=== PATIENT | female | born 1940 | race Caucasian/White ===

== ENCOUNTER 2018-10-14 13:35 | Inpatient (IN) | payer MEDICARE, BC ==
--- NOTE | 2018-10-14 14:22 | ED Physician Chart ---
ED Chief Complaint/HPI - Patient Information Date Seen:: 10/14/18 Time Seen:: 14:10 Chief Complaint:: cough History of Present Illness:: Patient's had cough intermittently for last 6 months. Patient was hospitalized 3 months ago for COPD/pneumonia. Patient's sputum is off-white in color and her cough is less than it was 3 months ago. No chills or fever. Patient has been on Levaquin for the last 1 week. Patient was transferred here from [facility] where she was admitted 2 weeks ago for having overdosed on 4 OxyContin and a handful of high blood pressure pills the name of which she is unaware. Allergies:: Allergies Allergy/AdvReac Type Severity Reaction Status Date / Time codeine Allergy Verified 10/14/18 14:08 morphine Allergy Verified 10/14/18 14:09 Penicillins [PCN] Allergy Verified 10/14/18 14:08 Historian:: Patient Review:: Transfer documents Reviewed ED Review of Systems - Review of Systems General/Constitutional: No fever, No chills Skin: No skin lesions Head: No headache Eyes: No loss of vision ENT: No earache Neck: No neck pain Cardio Vascular: No chest pain, No palpitations Pulmonary: Cough, Sputum GI: No nausea, No vomiting, No diarrhea Musculoskeletal: No bone or joint pain Endocrine: No polyuria, No polydipsia Psychiatric: Prior psych history Hematopoietic: No bruising Allergic/Immuno: No urticaria Neurological: No syncope ED Past Medical History - Past Medical History Past Medical History: HTN, Asthma/COPD, Dyslipidemia, PUD/GERD, Other ( borderline diabetes) Family History: Heart disease Social History: Other (quit smoking 20 years ago; he consumes alcohol) Surgical History: other (2 back surgeries at [facility]) Psychiatricy History: Depression Medication: Reviewed ED Physical Exam - Physical Examination General/Constitutional: Awake, Well-developed, well-nourished, Alert, No distress, GCS 15, Non-toxic appearing, Ambulatory Head: Atraumatic Eyes: Lids, conjuctiva normal, PERRL, EOMI Skin: Nl inspection, No rash, No skin lesions, No ecchymosis, Well hydrated, No lymphadenopathy ENMT: External ears, nose nl, Nasal exam nl Other ENMT comments:: full upper and lower dentures Neck: Nontender, Full ROM w/o pain, No JVD, No nuchal rigidity, No bruit, No mass, No stridor Respiratory: Nl effort/Exclusion, No Wheeze/Rhonchi/Rales Other Respiratory comments:: 3/4 left basilar rales; otherwise chest is clear Cardio Vascular: RRR, No murmur, gallop, rubs, NL S1 S2 GI: No tenderness/rebounding/guarding, No organomegaly, No hernia, Normal BS's, Nondistended, No mass/bruits, No McBurney tenderness : No CVA tenderness Extremities: No tenderness or effusion, Full ROM, normal strength in all extremities, No edema, Normal digits & nails Neuro/Psych: Alert/oriented, DTR's symmetric, Normal sensory exam, Normal motor strength, Judgement/insight normal, Mood normal, Normal gait, No focal deficits Misc: Normal back, No paraspinal tenderness ED Labs/Radiology/EKG Results - Lab Results Results: Laboratory Results WBC 12.3 Th/cmm (4.8-10.8) H 10/14/18 14:36 RBC 4.37 Mil/cmm (3.80-5.20) 10/14/18 14:36 Hgb 11.6 gm/dL (12-16) L 10/14/18 14:36 Hct 35.6 % (41.0-60) L 10/14/18 14:36 MCV 81.3 fl (81-100) 10/14/18 14:36 MCH 26.6 pg (27.0-31.0) L 10/14/18 14:36 MCHC Differential 32.7 pg (28.0-36.0) 10/14/18 14:36 RDW 15.5 % (11.5-20.0) 10/14/18 14:36 Plt Count 304 Th/cmm (150-400) 10/14/18 14:36 MPV 7.3 fl 10/14/18 14:36 Neutrophils % 85.3 % (40.0-80.0) H 10/14/18 14:36 Lymphocytes % 12.2 % (20.0-50.0) L 10/14/18 14:36 Monocytes % 2.0 % (2.0-10.0) 10/14/18 14:36 Eosinophils % 0.5 % (0.0-5.0) 10/14/18 14:36 Basophils % 0.0 % (0.0-2.0) 10/14/18 14:36 Sodium 141 mEq/L (136-145) 10/14/18 14:36 Potassium 4.1 mEq/L (3.5-5.1) 10/14/18 14:36 Chloride 99 mEq/L (98-107) 10/14/18 14:36 Carbon Dioxide 32.5 mEq/L (21.0-31.0) H 10/14/18 14:36 Anion Gap 13.6 (7.0-16.0) 10/14/18 14:36 BUN 29 mg/dL (7-25) H 10/14/18 14:36 Creatinine 1.6 mg/dL (0.6-1.2) H 10/14/18 14:36 Est GFR ( Amer) TNP 10/14/18 14:36 Est GFR (Non-Af Amer) TNP 10/14/18 14:36 BUN/Creatinine Ratio 18.1 10/14/18 14:36 Glucose 178 mg/dL (70-105) H 10/14/18 14:36 Calcium 9.7 mg/dL (8.6-10.3) 10/14/18 14:36 - Radiology Results Results: Chest x-ray showed calcification of the aortic arch; no infiltrate ED Septic Shock - . Is Septic Shock (SBP<90, OR Lactate>4 mmol\L) present?: No ED Reassessment (Disposition) - Reassessment Reassessment Condition:: Unchanged - Diagnosis Diagnosis:: exacerbation COPD; hyperglycemia; leukocytosis; history of depression and intentional medication overdose - Patient Disposition Admitted to:: Med/Surg Spoke to:: Graham Vasquez Admitting Medical Physician:: Graham Vasquez Condition at Disposition:: Stable, Unchanged
--- NOTE | 2018-10-14 14:33 | Diagnostic Imaging Report ---
CHEST X-RAY: AP view INDICATION: Cough COMPARISON: None FINDINGS: Chronic changes are seen with no focal consolidation. There is a 5 mm nodular density projecting along the right midlung. Heart size is normal. Atherosclerosis is noted. Degenerative changes of the spine are noted. IMPRESSION: No focal consolidation identified. 5 mm nodular density projecting along the right mid lung. Findings may represent a granuloma. Correlation with old exams would be helpful for comparison. If no prior exams are available, a follow-up CT of the chest is, however, recommended for further assessment of this finding to rule out other pulmonary nodules. Atherosclerotic vascular disease.
[2018-10-14 14:42] LABS: % EOSINOPHILS 0.5 % (0.0-5.0); % LYMPHOCYTES 12.2 % (20.0-50.0); % NEUTROPHILS 85.3 % (40.0-80.0); EOSINOPHILE ABSOLUTE 0.1 Th/cmm (0.1-0.4); HEMATOCRIT 35.6 % (41.0-60); HEMOGLOBIN 11.6 gm/dL (12-16); LYMPHOCYTE ABSOLUTE 1.5 Th/cmm (1.5-3.0); MEAN CELL VOLUME 81.3 fl (81-100); MEAN CORPUSCULAR HEMOGLOBIN 26.6 pg (27.0-31.0); MEAN CORPUSCULAR HGB CONC 32.7 pg (28.0-36.0); MEAN PLATELET VOLUME 7.3 fl; MONOCYTE ABSOLUTE 0.2 Th/cmm (0.3-1.0); NEUTROPHILE ABSOLUTE 10.5 Th/cmm (1.8-8.0); PLATELET COUNT 304 Th/cmm (150-400); RED BLOOD COUNT 4.37 Mil/cmm (3.80-5.20); RED CELL DISTRIBUTION WIDTH 15.5 % (11.5-20.0); WHITE BLOOD COUNT 12.3 Th/cmm (4.8-10.8)
[2018-10-14 14:57] LABS: ANION GAP 13.6 (7.0-16.0); BUN - UREA NITROGEN 29 mg/dL (7-25); CALCIUM SERUM 9.7 mg/dL (8.6-10.3); CARBON DIOXIDE 32.5 mEq/L (21.0-31.0); CHLORIDE 99 mEq/L (98-107); CREATININE - SERUM 1.6 mg/dL (0.6-1.2); GLUCOSE 178 mg/dL (70-105); POTASSIUM SERUM 4.1 mEq/L (3.5-5.1); SODIUM SERUM 141 mEq/L (136-145)
[2018-10-14] MEDS ORDERED: Magnesium Hydroxide (MOM) 30 mL UDC PO PRN (17:11)
[2018-10-14] MEDS ORDERED: guaiFENesin 200 MG/10 ML UDC PO PRN (17:13)
[2018-10-14] MEDS ORDERED: D5-0.45NS 1,000 ML IV SCH (17:15)
[2018-10-14] MEDS ORDERED: GLUCAGON HCl 1 MG KIT IM PRN (17:22)
[2018-10-14] MEDS ORDERED: Dextrose 50% 50 mL Abboject IVP PRN (17:22)
[2018-10-14 17:49] VITALS: BP 107/89
--- NOTE | 2018-10-14 18:27 | History & Physical ---
ADMIT DATE: 10/14/2018 CHIEF COMPLAINT: Congestion, shortness of breath and coughing. HISTORY OF PRESENT ILLNESS: This is a 78-year-old female with a history of asthma, COPD, high blood pressure, high cholesterol, borderline diabetes, GERD, admitted from ____ secondary to worsening shortness of breath. The patient was on Levaquin as well as steroids, but her condition has not been improving. The patient denies chest pain. PAST MEDICAL HISTORY: As mentioned in history of present illness. PAST SURGICAL HISTORY: 2 back sx, left knee sx in the past. ALLERGIES: CODEINE, MORPHINE, PENICILLIN. MEDICATIONS: Albuterol, Atrovent, Lexapro, Colace, Plavix, gabapentin, Neurontin, Mucinex, Ativan, ____ Levaquin as well as prednisone. FAMILY HISTORY: Noncontributory. SOCIAL HISTORY: The patient is an avid smoker, quit 20 yrs ago,drinks occasionally. No intravenous drug use.worked as [employer]. REVIEW OF SYSTEMS: GENERAL: Complains not feeling well. HEENT: Blurred vision. LUNGS: The patient with chronic obstructive pulmonary disease and asthma. Chronic smoker. HEART: The patient with hypertension. The patient with history of coronary artery disease. ABDOMEN: No nausea, vomiting, or pain, history of reflux. NEUROLOGIC: No headache, seizure or syncope. PSYCHIATRIC: As stated above. PHYSICAL EXAMINATION: VITAL SIGNS: Blood pressure 151/64, respirations 20, pulse 62, temperature 97.0. Elderly female, appears her stated age. NECK: Supple. No mass. LUNGS: Equal breath sounds, few rhonchi. HEART: Regular rate and rhythm. No systolic ejection murmur. ABDOMEN: Soft, globular. EXTREMITIES: Positive excoriations. NEUROLOGIC: Limited. LABORATORY DATA: WBC 12, hemoglobin 11, platelets 304. Sodium 141, potassium 4.1, BUN 29, creatinine 1.6, blood sugar 128. ASSESSMENT: 1. Possible pneumonia. 2. Chronic obstructive pulmonary disease exacerbation. 3. Hypertension. 4. Possible coronary artery disease. 5. Hypercholesterolemia. 6. Hyperglycemia, possible diabetes. 7. Gastroesophageal disorder. 8. Psych disorder. PLAN: We will continue the patient on oxygen, bronchodilator treatment. Continue on IV hydration, hold off diuretics. We will start the patient on vancomycin as well as ____. Continue IV steroids. We will refer the patient to Pulmonary and we will monitor the patient closely. JOB# [id number] CASSIE
[2018-10-14] MEDS ORDERED: Albuterol Nebulizer 2.5mg/3mL HHN SCH (19:00)
[2018-10-14] MEDS ORDERED: Ipratropium Neb 0.5 mg/2.5 mL UD IH SCH (19:00)
[2018-10-14] MEDS ORDERED: Levofloxacin 500mg/100mL 500 MG/100 ML BAG IV ONE (20:00)
[2018-10-14] MEDS: Sodium Chloride 0.45% 1,000 ML IV SCH (20:08)
[2018-10-14] MEDS: INSULIN LISPRO SLIDING SCALE 100 UNITS/ML UNIT SUBQ SCH (20:43)
[2018-10-14] MEDS ORDERED: Albuterol/Ipratropium Neb 3 ML AERS HHN SCH (21:00)
[2018-10-15] MEDS: INSULIN LISPRO SLIDING SCALE 100 UNITS/ML UNIT SUBQ SCH ×4 (06:41→21:19)
[2018-10-15] MEDS: Albuterol/Ipratropium Neb 3 ML AERS HHN SCH ×3 (07:49→22:32)
[2018-10-15] MEDS: Atorvastatin Calcium 10 MG TAB PO SCH (08:56)
[2018-10-15] MEDS ORDERED: Non-Formulary Item 1 EA (L.Acidoph,Paracasei, B.Lactis [Probiotic] 1 EACH) PO SCH (09:00)
[2018-10-15] MEDS ORDERED: Non-Formulary Item 1 EA (Metoprolol Tartrate [Metoprolol Tartrate] 100 MG) PO SCH (09:00)
[2018-10-15] MEDS ORDERED: LOSARTAN POTASSIUM 100 MG PO SCH (09:00)
[2018-10-15 09:08] LABS: ANION GAP 13.9 (7.0-16.0); BUN - UREA NITROGEN 27 mg/dL (7-25); CALCIUM SERUM 9.1 mg/dL (8.6-10.3); CHLORIDE 97 mEq/L (98-107); CREATININE - SERUM 1.4 mg/dL (0.6-1.2); GLUCOSE 202 mg/dL (70-105); POTASSIUM SERUM 3.9 mEq/L (3.5-5.1); SODIUM SERUM 138 mEq/L (136-145)
[2018-10-15] MEDS: Sodium Chloride 0.45% 1,000 ML IV SCH (11:51)
--- NOTE | 2018-10-15 12:23 | Internal Medicine Prog Note ---
Internal Medicine Subjective - Subjective Patient seen and examined:: with staff, chart reviewed Patient is:: awake, verbal, interactive, in bed Patient Complaints of:: congestion, unable to sleep Per staff patient has:: no adverse event, no episodes of fall, poor appetite Internal Medicine Objective - Results Result Diagrams: 10/14/18 14:36 10/15/18 08:45 Recent Labs: Laboratory Last Values WBC 12.3 Th/cmm (4.8-10.8) H 10/14/18 14:36 RBC 4.37 Mil/cmm (3.80-5.20) 10/14/18 14:36 Hgb 11.6 gm/dL (12-16) L 10/14/18 14:36 Hct 35.6 % (41.0-60) L 10/14/18 14:36 MCV 81.3 fl (81-100) 10/14/18 14:36 MCH 26.6 pg (27.0-31.0) L 10/14/18 14:36 MCHC Differential 32.7 pg (28.0-36.0) 10/14/18 14:36 RDW 15.5 % (11.5-20.0) 10/14/18 14:36 Plt Count 304 Th/cmm (150-400) 10/14/18 14:36 MPV 7.3 fl 10/14/18 14:36 Neutrophils % 85.3 % (40.0-80.0) H 10/14/18 14:36 Lymphocytes % 12.2 % (20.0-50.0) L 10/14/18 14:36 Monocytes % 2.0 % (2.0-10.0) 10/14/18 14:36 Eosinophils % 0.5 % (0.0-5.0) 10/14/18 14:36 Basophils % 0.0 % (0.0-2.0) 10/14/18 14:36 Sodium 138 mEq/L (136-145) 10/15/18 08:45 Potassium 3.9 mEq/L (3.5-5.1) 10/15/18 08:45 Chloride 97 mEq/L (98-107) L 10/15/18 08:45 Carbon Dioxide 31.0 mEq/L (21.0-31.0) 10/15/18 08:45 Anion Gap 13.9 (7.0-16.0) 10/15/18 08:45 BUN 27 mg/dL (7-25) H 10/15/18 08:45 Creatinine 1.4 mg/dL (0.6-1.2) H 10/15/18 08:45 Est GFR ( Amer) TNP 10/15/18 08:45 Est GFR (Non-Af Amer) TNP 10/15/18 08:45 BUN/Creatinine Ratio 19.3 10/15/18 08:45 Glucose 202 mg/dL (70-105) H 10/15/18 08:45 POC Glucose 200 MG/DL (70 - 105) H 10/15/18 11:50 Calcium 9.1 mg/dL (8.6-10.3) 10/15/18 08:45 - Physical Exam Vitals and I&O: Vital Signs Temp 96.8 F 10/15/18 08:00 Pulse 63 10/15/18 08:56 Resp 18 10/15/18 08:00 BP 153/61 10/15/18 08:56 Pulse Ox 99 10/15/18 08:00 Intake & Output 10/14/18 10/15/18 10/15/18 18:59 06:59 18:59 Intake Total 588 211 7001 Balance 037 247 9990 Weight (lbs) 97.522 kg 97.522 kg Intake: Intake, IV Amount 1000 Sodium Chloride 0.45% 1, 1000 000 ml @ 80 mls/hr IV . [id number] [facility] Rx#:[id number] Oral 200 250 Other: # Voids 5 # Bowel Movements 0 Weight Source Bedscale Bedscale Active Medications: Current Medications Acetaminophen (Tylenol) 650 mg PO Q4HR PRN PRN Reason: Pain (Moderate) Stop: 12/13/18 17:10 Last Admin: 10/14/18 20:24 Dose: 650 mg Albuterol/Ipratropium (Duoneb Neb) 3 ml HHN TIDRT [facility] Stop: 12/14/18 02:29 Last Admin: 10/15/18 07:49 Dose: 3 ml Atorvastatin Calcium (Lipitor) 20 mg PO DAILY [facility] Stop: 12/14/18 08:59 Last Admin: 10/15/18 08:56 Dose: 20 mg Clopidogrel Bisulfate (Plavix) 75 mg PO DAILY [facility] Stop: 12/14/18 08:59 Last Admin: 10/15/18 08:57 Dose: 75 mg Dextrose (D50w) 50 ml IVP PRN PRN PRN Reason: Blood Glucose less than 70 Stop: 12/13/18 17:21 Dextrose (Glutose 40%) 18.75 gm PO PRN PRN PRN Reason: Blood Glucose less than 70 Stop: 12/13/18 17:21 Docusate Sodium (Colace) 100 mg PO DAILY [facility] Stop: 12/14/18 08:59 Last Admin: 10/15/18 09:01 Dose: Not Given Escitalopram Oxalate (Lexapro) 10 mg PO DAILY [facility]; Protocol Stop: 12/14/18 08:59 Last Admin: 10/15/18 08:57 Dose: 10 mg Famotidine (Pepcid) 20 mg PO DAILY [facility] Stop: 12/14/18 08:59 Last Admin: 10/15/18 08:56 Dose: 20 mg Gabapentin (Neurontin) 400 mg PO DAILY [facility] Stop: 12/14/18 08:59 Last Admin: 10/15/18 08:56 Dose: 400 mg Glucagon (Glucagen) 1 mg IM PRN PRN PRN Reason: Blood Glucose less than 70 Stop: 12/13/18 17:21 Guaifenesin (Mucinex) 600 mg PO BID [facility] Stop: 12/14/18 08:59 Last Admin: 10/15/18 08:56 Dose: 600 mg Guaifenesin (Robitussin) 200 mg PO Q4HR PRN PRN Reason: Cough or Congestion Stop: 12/13/18 17:12 Sodium Chloride (Nacl 0.45%) 1,000 mls @ 80 mls/hr IV .[id number] [facility] Stop: 12/13/18 17:29 Last Admin: 10/15/18 11:51 Dose: 80 mls/hr Levofloxacin (Levaquin Pb) 250 mg in 50 mls @ 50 mls/hr IV Q24HR [facility] Stop: 12/14/18 20:59 Vancomycin HCl 1.5 gm/ Sodium (Chloride) 500 mls @ 250 mls/hr IV Q24H [facility] Stop: 12/14/18 13:59 Insulin Human Lispro (Humalog Insulin Sliding Scale) 0 units SUBQ ACHS [facility]; Protocol Stop: 12/13/18 20:59 Last Admin: 10/15/18 06:41 Dose: Not Given Loratadine (Claritin) 10 mg PO DAILY [facility] Stop: 12/14/18 08:59 Last Admin: 10/15/18 08:56 Dose: 10 mg Lorazepam (Ativan) 0.5 mg PO Q6HR PRN; Protocol PRN Reason: Anxiety Stop: 12/13/18 17:10 Losartan Potassium (Cozaar) 100 mg PO DAILY [facility] Stop: 12/14/18 08:59 Last Admin: 10/15/18 08:55 Dose: 100 mg Magnesium Hydroxide (Milk Of Magnesia) 30 ml PO Q4HR PRN PRN Reason: GI DISTRESS Stop: 12/13/18 17:10 Methylprednisolone Sodium Succinate (Solu-Medrol) 80 mg IVP Q8HR [facility] Stop: 12/13/18 20:59 Last Admin: 10/15/18 05:06 Dose: 80 mg Metoprolol Tartrate (Lopressor) 100 mg PO DAILY [facility] Stop: 12/14/18 08:59 Last Admin: 10/15/18 08:56 Dose: 100 mg Miscellaneous (Pharmacy To Dose) 1 ea [facility] PRN PRN PRN Reason: VANCOMYCIN IV PER RX Stop: 12/14/18 08:07 Montelukast Sodium (Singulair) 10 mg PO HS [facility] Stop: 12/14/18 20:59 Ondansetron HCl (Zofran) 4 mg IV Q8H PRN PRN Reason: Nausea / Vomiting Stop: 12/13/18 17:12 Oxybutynin Chloride (Ditropan) 5 mg PO TID PRN PRN Reason: Urinary Incontinence Stop: 12/13/18 17:10 Zolpidem Tartrate (Ambien) 5 mg PO HS PRN PRN Reason: Sleeplessness Stop: 12/13/18 17:10 Last Admin: 10/15/18 00:52 Dose: 5 mg General: alert, obese HEENT: NC/AT, PERRLA Neck: Supple, No JVD Lungs: wheezing, rales, ronchi Cardiovascular: RRR, Normal S1, Normal S2, with murmur Abdomen: soft, globular, positive bowel sound Extremities: excoriation Internal Medicine Assmt/Plan - Assessment Assessment: ASSESSMENT: 1. Possible pneumonia. 2. Chronic obstructive pulmonary disease exacerbation. 3. Hypertension. 4. Possible coronary artery disease. 5. Hypercholesterolemia. 6. Hyperglycemia, possible diabetes. 7. Gastroesophageal disorder. 8. Psych disorder. - Plan Plan: PLAN: We will continue the patient on oxygen, bronchodilator treatment. Continue on IV hydration, hold off diuretics. We will start the patient on vancomycin as well as ___levaquin_. Continue IV steroids. We will refer the patient to Pulmonary and we will monitor the patient closely.
[2018-10-15] MEDS ORDERED: VTE Chemical Prophylaxis Screen/Admission MC PRN (13:38)
[2018-10-15] MEDS ORDERED: Vancomycin HCl 1.5 GM in Sodium Chloride 0.9% 500 ML IV SCH (14:00)
[2018-10-15] MEDS ORDERED: Probiotic Screen MC PRN (16:35)
[2018-10-15] MEDS: Heparin Sod 5,000Units/ML 5,000 UNITS/ML VIAL SUBQ SCH (21:19)
[2018-10-15] MEDS: Levofloxacin 250 mg/50 mL Premix Bag IV SCH (21:57)
[2018-10-16 06:24] LABS: % BASOPHILS 0.6 % (0.0-2.0); % EOSINOPHILS 0.2 % (0.0-5.0); % LYMPHOCYTES 14.1 % (20.0-50.0); % MONOCYTES 2.6 % (2.0-10.0); % NEUTROPHILS 82.5 % (40.0-80.0); BASOPHILE ABSOLUTE 0.1 Th/cumm (0-0.2); HEMATOCRIT 33.5 % (41.0-60); HEMOGLOBIN 10.8 gm/dL (12-16); LYMPHOCYTE ABSOLUTE 1.3 Th/cmm (1.5-3.0); MEAN CELL VOLUME 81.4 fl (81-100); MEAN CORPUSCULAR HEMOGLOBIN 26.2 pg (27.0-31.0); MEAN CORPUSCULAR HGB CONC 32.2 pg (28.0-36.0); MEAN PLATELET VOLUME 7.7 fl; MONOCYTE ABSOLUTE 0.2 Th/cmm (0.3-1.0); NEUTROPHILE ABSOLUTE 7.6 Th/cmm (1.8-8.0); PLATELET COUNT 236 Th/cmm (150-400); RED BLOOD COUNT 4.11 Mil/cmm (3.80-5.20); WHITE BLOOD COUNT 9.2 Th/cmm (4.8-10.8)
[2018-10-16 06:30] LABS: ALB/GLOB RATIO 1.5 (1.0-1.8); ALBUMIN 3.3 gm/dL (3.7-5.3); ALKALINE PHOSPHATASE 55 U/L (34-104); ANION GAP 9.9 (7.0-16.0); BILIRUBIN,TOTAL 0.4 mg/dL (0.3-1.0); BUN - UREA NITROGEN 29 mg/dL (7-25); CALCIUM SERUM 8.9 mg/dL (8.6-10.3); CARBON DIOXIDE 30.7 mEq/L (21.0-31.0); CHLORIDE 100 mEq/L (98-107); CHOLESTEROL 160 mg/dL (<200); CREATININE - SERUM 1.3 mg/dL (0.6-1.2); GLUCOSE 192 mg/dL (70-105); HDL -HIGH DENSITY LIPOPROTEIN 51 mg/dL (23-92); POTASSIUM SERUM 3.6 mEq/L (3.5-5.1); SGOT 7 U/L (13-39); SGPT/ALT 10 U/L (7-52); SODIUM SERUM 137 mEq/L (136-145); TOTAL PROTEIN,SERUM 5.5 gm/dL (6.0-8.3); TRIGLYCERIDES 133 mg/dL (<150)
[2018-10-16] MEDS: Albuterol/Ipratropium Neb 3 ML AERS HHN SCH ×3 (06:34→23:00)
[2018-10-16] MEDS: INSULIN LISPRO SLIDING SCALE 100 UNITS/ML UNIT SUBQ SCH ×4 (06:37→20:29)
[2018-10-16] MEDS: Heparin Sod 5,000Units/ML 5,000 UNITS/ML VIAL SUBQ SCH ×2 (09:48→20:14)
[2018-10-16] MEDS: Atorvastatin Calcium 10 MG TAB PO SCH (09:49)
--- NOTE | 2018-10-16 10:46 | Diagnostic Imaging Report ---
Time: CT examination of chest. HISTORY: Lung nodule. COMPARISON: None Total DLP equals 339 CTDI equals 8.8 Findings: Multiple contiguous thin section of the chest were obtained from thoracic outlet to the upper abdomen without administration of contrast material. The study demonstrates normal appearance of the right vessels of the neck. Adenopathy cannot be excluded due to lack of contrast material. Distal structures midline no abnormal adenopathy is noted. There is evidence of pleural thickening in the right lower chest posteriorly. There is evidence for a small 8 mm granuloma in the right midlung. There is no active pulmonic infiltrates or effusions. Mediastinal adenopathy is difficult to appreciated just lateral of contrast material. There is evidence for pleural thickening in the right base posteriorly with atelectatic changes. The aorta is calcified. IMPRESSION: Small granuloma in the right midlung peripherally. Pleural thickening in the right mid lung laterally as well as a pleural thickening right base with atelectasis.
[2018-10-16] MEDS: Sodium Chloride 0.45% 1,000 ML IV SCH (10:56)
--- NOTE | 2018-10-16 14:30 | Internal Medicine Prog Note ---
Internal Medicine Subjective - Subjective Service Date: 10/16/18 (c/o unable to spit out her phlegm) Patient is:: awake, verbal, interactive, in bed Patient Complaints of:: congestion, unable to sleep Per staff patient has:: no adverse event, no episodes of fall, poor appetite Internal Medicine Objective - Results Result Diagrams: 10/16/18 06:00 10/16/18 06:00 Recent Labs: Laboratory Last Values WBC 9.2 Th/cmm (4.8-10.8) 10/16/18 06:00 RBC 4.11 Mil/cmm (3.80-5.20) 10/16/18 06:00 Hgb 10.8 gm/dL (12-16) L 10/16/18 06:00 Hct 33.5 % (41.0-60) L 10/16/18 06:00 MCV 81.4 fl (81-100) 10/16/18 06:00 MCH 26.2 pg (27.0-31.0) L 10/16/18 06:00 MCHC Differential 32.2 pg (28.0-36.0) 10/16/18 06:00 RDW 15.0 % (11.5-20.0) 10/16/18 06:00 Plt Count 236 Th/cmm (150-400) 10/16/18 06:00 MPV 7.7 fl 10/16/18 06:00 Neutrophils % 82.5 % (40.0-80.0) H 10/16/18 06:00 Lymphocytes % 14.1 % (20.0-50.0) L 10/16/18 06:00 Monocytes % 2.6 % (2.0-10.0) 10/16/18 06:00 Eosinophils % 0.2 % (0.0-5.0) 10/16/18 06:00 Basophils % 0.6 % (0.0-2.0) 10/16/18 06:00 Sodium 137 mEq/L (136-145) 10/16/18 06:00 Potassium 3.6 mEq/L (3.5-5.1) 10/16/18 06:00 Chloride 100 mEq/L (98-107) 10/16/18 06:00 Carbon Dioxide 30.7 mEq/L (21.0-31.0) 10/16/18 06:00 Anion Gap 9.9 (7.0-16.0) 10/16/18 06:00 BUN 29 mg/dL (7-25) H 10/16/18 06:00 Creatinine 1.3 mg/dL (0.6-1.2) H 10/16/18 06:00 Est GFR ( Amer) TNP 10/16/18 06:00 Est GFR (Non-Af Amer) TNP 10/16/18 06:00 BUN/Creatinine Ratio 22.3 10/16/18 06:00 Glucose 192 mg/dL (70-105) H 10/16/18 06:00 POC Glucose 208 MG/DL (70 - 105) H 10/16/18 11:17 Calcium 8.9 mg/dL (8.6-10.3) 10/16/18 06:00 Total Bilirubin 0.4 mg/dL (0.3-1.0) 10/16/18 06:00 AST 7 U/L (13-39) L 10/16/18 06:00 ALT 10 U/L (7-52) 10/16/18 06:00 Alkaline Phosphatase 55 U/L (34-104) 10/16/18 06:00 Total Protein 5.5 gm/dL (6.0-8.3) L 10/16/18 06:00 Albumin 3.3 gm/dL (3.7-5.3) L 10/16/18 06:00 Globulin 2.2 gm/dL 10/16/18 06:00 Albumin/Globulin Ratio 1.5 (1.0-1.8) 10/16/18 06:00 Triglycerides 133 mg/dL (<150) 10/16/18 06:00 Cholesterol 160 mg/dL (<200) 10/16/18 06:00 LDL Cholesterol Direct 94 mg/dL (75-193) 10/16/18 06:00 HDL Cholesterol 51 mg/dL (23-92) 10/16/18 06:00 TSH 0.65 uIU/ml (0.34-5.60) 10/16/18 06:00 - Physical Exam Vitals and I&O: Vital Signs Temp 96.8 F 10/16/18 12:00 Pulse 76 10/16/18 12:09 Resp 20 10/16/18 12:09 BP 152/62 10/16/18 12:00 Pulse Ox 99 10/16/18 12:09 Intake & Output 10/15/18 10/16/18 10/16/18 18:59 06:59 18:59 Intake Total 1375 200 Balance 1375 200 Weight (lbs) 215 lb 215 lb Intake: Intake, IV Amount 1000 Sodium Chloride 0.45% 1, 1000 000 ml @ 80 mls/hr IV . [id number] [facility] Rx#:[id number] Oral 375 200 Other: # Voids 6 2 Weight Source Bedscale Bedscale Active Medications: Current Medications Acetaminophen (Tylenol) 650 mg PO Q4HR PRN PRN Reason: Pain (Moderate) Stop: 12/13/18 17:10 Last Admin: 10/14/18 20:24 Dose: 650 mg Albuterol/Ipratropium (Duoneb Neb) 3 ml HHN TIDRT [facility] Stop: 12/14/18 02:29 Last Admin: 10/16/18 12:05 Dose: 3 ml Atorvastatin Calcium (Lipitor) 20 mg PO DAILY [facility] Stop: 12/14/18 08:59 Last Admin: 10/16/18 09:49 Dose: 20 mg Clopidogrel Bisulfate (Plavix) 75 mg PO DAILY [facility] Stop: 12/14/18 08:59 Last Admin: 10/16/18 09:48 Dose: 75 mg Dextrose (D50w) 50 ml IVP PRN PRN PRN Reason: Blood Glucose less than 70 Stop: 12/13/18 17:21 Dextrose (Glutose 40%) 18.75 gm PO PRN PRN PRN Reason: Blood Glucose less than 70 Stop: 12/13/18 17:21 Docusate Sodium (Colace) 100 mg PO DAILY [facility] Stop: 12/14/18 08:59 Last Admin: 10/16/18 09:48 Dose: 100 mg Escitalopram Oxalate (Lexapro) 10 mg PO DAILY [facility]; Protocol Stop: 12/14/18 08:59 Last Admin: 10/16/18 09:48 Dose: 10 mg Famotidine (Pepcid) 20 mg PO DAILY [facility] Stop: 12/14/18 08:59 Last Admin: 10/16/18 09:48 Dose: 20 mg Gabapentin (Neurontin) 400 mg PO DAILY [facility] Stop: 12/14/18 08:59 Last Admin: 10/16/18 09:49 Dose: 400 mg Glucagon (Glucagen) 1 mg IM PRN PRN PRN Reason: Blood Glucose less than 70 Stop: 12/13/18 17:21 Guaifenesin (Mucinex) 600 mg PO BID [facility] Stop: 12/14/18 08:59 Last Admin: 10/16/18 09:47 Dose: 600 mg Guaifenesin (Robitussin) 200 mg PO Q4HR PRN PRN Reason: Cough or Congestion Stop: 12/13/18 17:12 Heparin Sodium (Porcine) (Heparin) 5,000 units SUBQ Q12H [facility] Stop: 12/14/18 20:59 Last Admin: 10/16/18 09:48 Dose: 5,000 units Levofloxacin (Levaquin Pb) 250 mg in 50 mls @ 50 mls/hr IV Q24HR [facility] Stop: 12/14/18 20:59 Last Admin: 10/15/18 21:57 Dose: 50 mls/hr Sodium Chloride (Nacl 0.45%) 1,000 mls @ 60 mls/hr IV .[id number] [facility] Stop: 12/14/18 12:29 Last Admin: 10/16/18 10:56 Dose: 60 mls/hr Vancomycin HCl 1 gm/ Sodium (Chloride) 250 mls @ 165 mls/hr IV Q24H [facility] Stop: 12/15/18 13:59 Last Admin: 10/16/18 13:11 Dose: 165 mls/hr Insulin Human Lispro (Humalog Insulin Sliding Scale) 0 units SUBQ ACHS [facility]; Protocol Stop: 12/13/18 20:59 Last Admin: 10/16/18 11:45 Dose: 2 units Loratadine (Claritin) 10 mg PO DAILY [facility] Stop: 12/14/18 08:59 Last Admin: 10/16/18 09:48 Dose: 10 mg Lorazepam (Ativan) 0.5 mg PO Q6HR PRN; Protocol PRN Reason: Anxiety Stop: 12/13/18 17:10 Losartan Potassium (Cozaar) 100 mg PO DAILY [facility] Stop: 12/14/18 08:59 Last Admin: 10/16/18 09:47 Dose: 100 mg Magnesium Hydroxide (Milk Of Magnesia) 30 ml PO Q4HR PRN PRN Reason: GI DISTRESS Stop: 12/13/18 17:10 Methylprednisolone Sodium Succinate (Solu-Medrol) 40 mg IVP Q8HR [facility] Stop: 12/15/18 20:59 Metoprolol Tartrate (Lopressor) 100 mg PO DAILY [facility] Stop: 12/14/18 08:59 Last Admin: 10/16/18 09:48 Dose: 100 mg Miscellaneous (Pharmacy To Dose) 1 ea PRN PRN PRN Reason: VANCOMYCIN IV PER RX Stop: 12/14/18 08:07 Miscellaneous (Vte Chemical Prophylaxis Screen/ Admission) 1 ea PRN PRN PRN Reason: PROTOCOL Stop: 12/14/18 13:37 Miscellaneous (Probiotic Screen) 1 ea PRN PRN PRN Reason: PROTOCOL Stop: 12/14/18 16:34 Montelukast Sodium (Singulair) 10 mg PO HS [facility] Stop: 12/14/18 20:59 Last Admin: 10/15/18 21:19 Dose: 10 mg Ondansetron HCl (Zofran) 4 mg IV Q8H PRN PRN Reason: Nausea / Vomiting Stop: 12/13/18 17:12 Oxybutynin Chloride (Ditropan) 5 mg PO TID PRN PRN Reason: Urinary Incontinence Stop: 12/13/18 17:10 Zolpidem Tartrate (Ambien) 5 mg PO HS PRN PRN Reason: Sleeplessness Stop: 12/13/18 17:10 Last Admin: 10/15/18 23:08 Dose: 5 mg General: alert, obese HEENT: NC/AT, PERRLA Neck: Supple, No JVD Lungs: wheezing, rales, ronchi Cardiovascular: RRR, Normal S1, Normal S2, with murmur Abdomen: soft, globular, positive bowel sound Extremities: excoriation Internal Medicine Assmt/Plan - Assessment Assessment: 1. Possible pneumonia. 2. Chronic obstructive pulmonary disease exacerbation. 3. Hypertension. 4. Possible coronary artery disease. 5. Hypercholesterolemia. 6. Hyperglycemia, possible diabetes. 7. Gastroesophageal disorder. 8. Psych disorder. - Plan Plan: continue ivabx respiratory treatments will add mucomyst am labs midline to be placed as patient is hard stick
--- NOTE | 2018-10-16 17:30 | Consultation ---
DATE OF CONSULTATION: 10/15/2018 PSYCHIATRIC CONSULTATION CHIEF COMPLAINT: "Feeling a little bit better." HISTORY OF PRESENT ILLNESS: The patient is a 78-year-old female with a history of depression, anxiety, status post suicide attempt by overdosing, was on psychiatric floor at [facility], treated for depression. The patient now transferred to medical floor for treatment of infection. The patient says she is feeling better in terms of anxiety and depression, has no suicidal thoughts, talked about stressors, money problems, and health issues. The patient was started on Lexapro and she appears to be improving. PAST PSYCHIATRIC HISTORY: Chronic depression and anxiety. PAST MEDICAL HISTORY: As per H and P. PSYCHOSOCIAL HISTORY: Family is supportive, daughter is involved in treatment. MENTAL STATUS EXAMINATION: Speech fluent, not pressured, made fair eye contact. Affect is slightly anxious and depressed. No other visual hallucinations. No delusional thoughts. No suicidal or homicidal thoughts. ASSESSMENT: Major depressive disorder. PLAN: Continue Lexapro 10 mg p.o. every day and Ativan 0.5 mg p.o. q. 6 hours p.r.n. The patient will need physical rehabilitation after this hospitalization while she was at [facility], she was in the process of being transferred to [facility]. We will follow up on this. Thank you for the consultation. [facility]# [id number]
[2018-10-16] MEDS: methylPREDNISolone SS 40 mg Vial IVP SCH (20:13)
[2018-10-16] MEDS: Levofloxacin 250 mg/50 mL Premix Bag IV SCH (20:14)
--- NOTE | 2018-10-16 21:14 | Consultation ---
DATE OF CONSULTATION: 10/15/[address] Vasquez for this consultation. HISTORY OF PRESENT ILLNESS: This is a 78-year-old female with history of COPD, hypertension, hypercholesterolemia, presented with cough, shortness, congestion, shortness of breath. She has presented to the Emergency Room couple of times in the past 6 months and was admitted for treatment and management, feeling better already. Denies any shortness of breath. She did have some cough. SOCIAL HISTORY: History of smoking 2-1/2 packs a day for over 20 years, quit 27 years ago. REVIEW OF SYSTEMS: GENERAL: Weakness and fatigue. CARDIOVASCULAR: No chest pain. RESPIRATORY: Shortness of breath. No wheezing. GASTROINTESTINAL: No nausea or vomiting. PHYSICAL EXAMINATION: GENERAL: Awake, but not in distress. VITAL SIGNS: Temperature is 96.8, pulse 63, respiration 18, blood pressure 153/61, saturation 99%. HEENT: Atraumatic, normocephalic. Pupils are equal to light and accommodation. Ears, nose, and throat normal. NECK: Supple. No JVD. CHEST: There are scattered wheezing and rhonchi bilaterally. HEART: Regular rate and rhythm. ABDOMEN: Soft. EXTREMITIES: No edema. LABORATORY DATA: Sodium 138, potassium 3.9, BUN 27, creatinine 1.4. WBC is 12.3, hemoglobin 11.6, platelets 304. Chest x-ray showed 5 mm nodule at the lung area. IMPRESSION: 1. Chronic respiratory failure. 2. Chronic obstructive pulmonary disease exacerbation. 3. Lung nodule. PLAN: 1. Continue IV antibiotics. 2. IV Solu-Medrol. 3. Nebulizer treatment. 4. CT of the chest for better evaluation. Thank you very much for this consultation. I will follow the patient with you. JOB# [id number]
--- NOTE | 2018-10-16 23:14 | Progress Notes ---
DATE: 10/16/2018 SUBJECTIVE: The patient appears to be doing okay. Breathing mendez has swollen right arm base from the IV. PHYSICAL EXAMINATION: VITAL SIGNS: Temperature 96.8, pulse 76, respirations 20, blood pressure is 150/62, saturation 99%. CHEST: Good breath sounds. Decreased wheezing or rhonchi. HEART: Regular rate and rhythm. ABDOMEN: Soft. EXTREMITIES: No edema. LABORATORY DATA: WBC is 9.2, hemoglobin 10.8. Sodium is 137, potassium 3.6, BUN is 29, creatinine 1.3. CT of the chest showed small granuloma and pleural thickening. No masses. IMPRESSION: 1. Respiratory failure. 2. Chronic obstructive pulmonary disease exacerbation. 3. Weakness. 4. Right arm swelling secondary to IV. PLAN: Discussed with the nurse staff to discontinue IV, compress to elevate the right arm and continue Solu-Medrol, nebulizer treatment. Decrease steroids. JOB# [id number]
[2018-10-17] MEDS: methylPREDNISolone SS 40 mg Vial IVP SCH ×3 (04:20→20:18)
[2018-10-17 06:34] LABS: % EOSINOPHILS 0.3 % (0.0-5.0); % LYMPHOCYTES 11.8 % (20.0-50.0); % MONOCYTES 3.7 % (2.0-10.0); % NEUTROPHILS 84.2 % (40.0-80.0); HEMATOCRIT 33.4 % (41.0-60); HEMOGLOBIN 10.9 gm/dL (12-16); LYMPHOCYTE ABSOLUTE 1.1 Th/cmm (1.5-3.0); MEAN CELL VOLUME 80.7 fl (81-100); MEAN CORPUSCULAR HEMOGLOBIN 26.2 pg (27.0-31.0); MEAN CORPUSCULAR HGB CONC 32.5 pg (28.0-36.0); MEAN PLATELET VOLUME 7.4 fl; MONOCYTE ABSOLUTE 0.4 Th/cmm (0.3-1.0); PLATELET COUNT 239 Th/cmm (150-400); RED BLOOD COUNT 4.14 Mil/cmm (3.80-5.20); RED CELL DISTRIBUTION WIDTH 14.7 % (11.5-20.0); WHITE BLOOD COUNT 9.5 Th/cmm (4.8-10.8)
[2018-10-17] MEDS: Albuterol/Ipratropium Neb 3 ML AERS HHN SCH ×2 (06:46→12:33)
[2018-10-17] MEDS: INSULIN LISPRO SLIDING SCALE 100 UNITS/ML UNIT SUBQ SCH ×4 (06:48→20:18)
[2018-10-17 06:54] LABS: BUN - UREA NITROGEN 30 mg/dL (7-25); CALCIUM SERUM 8.7 mg/dL (8.6-10.3); CARBON DIOXIDE 27.8 mEq/L (21.0-31.0); CHLORIDE 101 mEq/L (98-107); CREATININE - SERUM 1.2 mg/dL (0.6-1.2); GLUCOSE 178 mg/dL (70-105); POTASSIUM SERUM 3.8 mEq/L (3.5-5.1); SODIUM SERUM 138 mEq/L (136-145)
--- NOTE | 2018-10-17 08:38 | Internal Medicine Prog Note ---
Internal Medicine Subjective - Subjective Service Date: 10/17/18 (feels better denies any sob) Patient is:: awake, verbal, interactive, in bed Patient Complaints of:: congestion (less) Per staff patient has:: no adverse event, no episodes of fall Internal Medicine Objective - Results Result Diagrams: 10/17/18 06:15 10/17/18 06:15 Recent Labs: Laboratory Last Values WBC 9.5 Th/cmm (4.8-10.8) 10/17/18 06:15 RBC 4.14 Mil/cmm (3.80-5.20) 10/17/18 06:15 Hgb 10.9 gm/dL (12-16) L 10/17/18 06:15 Hct 33.4 % (41.0-60) L 10/17/18 06:15 MCV 80.7 fl (81-100) L 10/17/18 06:15 MCH 26.2 pg (27.0-31.0) L 10/17/18 06:15 MCHC Differential 32.5 pg (28.0-36.0) 10/17/18 06:15 RDW 14.7 % (11.5-20.0) 10/17/18 06:15 Plt Count 239 Th/cmm (150-400) 10/17/18 06:15 MPV 7.4 fl 10/17/18 06:15 Neutrophils % 84.2 % (40.0-80.0) H 10/17/18 06:15 Lymphocytes % 11.8 % (20.0-50.0) L 10/17/18 06:15 Monocytes % 3.7 % (2.0-10.0) 10/17/18 06:15 Eosinophils % 0.3 % (0.0-5.0) 10/17/18 06:15 Basophils % 0.0 % (0.0-2.0) 10/17/18 06:15 Sodium 138 mEq/L (136-145) 10/17/18 06:15 Potassium 3.8 mEq/L (3.5-5.1) 10/17/18 06:15 Chloride 101 mEq/L (98-107) 10/17/18 06:15 Carbon Dioxide 27.8 mEq/L (21.0-31.0) 10/17/18 06:15 Anion Gap 13.0 (7.0-16.0) 10/17/18 06:15 BUN 30 mg/dL (7-25) H 10/17/18 06:15 Creatinine 1.2 mg/dL (0.6-1.2) 10/17/18 06:15 Est GFR ( Amer) TNP 10/17/18 06:15 Est GFR (Non-Af Amer) TNP 10/17/18 06:15 BUN/Creatinine Ratio 25.0 10/17/18 06:15 Glucose 178 mg/dL (70-105) H 10/17/18 06:15 POC Glucose 167 MG/DL (70 - 105) H 10/17/18 06:47 Calcium 8.7 mg/dL (8.6-10.3) 10/17/18 06:15 Total Bilirubin 0.4 mg/dL (0.3-1.0) 10/16/18 06:00 AST 7 U/L (13-39) L 10/16/18 06:00 ALT 10 U/L (7-52) 10/16/18 06:00 Alkaline Phosphatase 55 U/L (34-104) 10/16/18 06:00 Total Protein 5.5 gm/dL (6.0-8.3) L 10/16/18 06:00 Albumin 3.3 gm/dL (3.7-5.3) L 10/16/18 06:00 Globulin 2.2 gm/dL 10/16/18 06:00 Albumin/Globulin Ratio 1.5 (1.0-1.8) 10/16/18 06:00 Triglycerides 133 mg/dL (<150) 10/16/18 06:00 Cholesterol 160 mg/dL (<200) 10/16/18 06:00 LDL Cholesterol Direct 94 mg/dL (75-193) 10/16/18 06:00 HDL Cholesterol 51 mg/dL (23-92) 10/16/18 06:00 TSH 0.65 uIU/ml (0.34-5.60) 10/16/18 06:00 - Physical Exam Vitals and I&O: Vital Signs Temp 97.6 F 10/17/18 08:00 Pulse 72 10/17/18 08:00 Resp 20 10/17/18 08:00 BP 96/57 10/17/18 08:00 Pulse Ox 96 10/17/18 08:00 Intake & Output 10/16/18 10/17/18 10/17/18 18:59 06:59 18:59 Intake Total 400 700 Balance 400 700 Weight (lbs) 215 lb 215 lb Intake: Oral 400 700 Other: # Voids 2 5 # Bowel Movements 0 Weight Source Bedscale Bedscale Active Medications: Current Medications Acetaminophen (Tylenol) 650 mg PO Q4HR PRN PRN Reason: Pain (Moderate) Stop: 12/13/18 17:10 Last Admin: 10/14/18 20:24 Dose: 650 mg Acetylcysteine (Mucomyst 20%) 3 ml HHN TID [facility] Stop: 12/15/18 20:59 Last Admin: 10/17/18 06:46 Dose: 3 ml Albuterol/Ipratropium (Duoneb Neb) 3 ml HHN TIDRT [facility] Stop: 12/14/18 02:29 Last Admin: 10/17/18 06:46 Dose: 3 ml Atorvastatin Calcium (Lipitor) 20 mg PO DAILY [facility] Stop: 12/14/18 08:59 Last Admin: 10/16/18 09:49 Dose: 20 mg Clopidogrel Bisulfate (Plavix) 75 mg PO DAILY [facility] Stop: 12/14/18 08:59 Last Admin: 10/16/18 09:48 Dose: 75 mg Dextrose (D50w) 50 ml IVP PRN PRN PRN Reason: Blood Glucose less than 70 Stop: 12/13/18 17:21 Dextrose (Glutose 40%) 18.75 gm PO PRN PRN PRN Reason: Blood Glucose less than 70 Stop: 12/13/18 17:21 Docusate Sodium (Colace) 100 mg PO DAILY [facility] Stop: 12/14/18 08:59 Last Admin: 10/16/18 09:48 Dose: 100 mg Escitalopram Oxalate (Lexapro) 10 mg PO DAILY [facility]; Protocol Stop: 12/14/18 08:59 Last Admin: 10/16/18 09:48 Dose: 10 mg Famotidine (Pepcid) 20 mg PO DAILY [facility] Stop: 12/14/18 08:59 Last Admin: 10/16/18 09:48 Dose: 20 mg Gabapentin (Neurontin) 400 mg PO DAILY [facility] Stop: 12/14/18 08:59 Last Admin: 10/16/18 09:49 Dose: 400 mg Glucagon (Glucagen) 1 mg IM PRN PRN PRN Reason: Blood Glucose less than 70 Stop: 12/13/18 17:21 Guaifenesin (Mucinex) 600 mg PO BID [facility] Stop: 12/14/18 08:59 Last Admin: 10/16/18 16:50 Dose: 600 mg Guaifenesin (Robitussin) 200 mg PO Q4HR PRN PRN Reason: Cough or Congestion Stop: 12/13/18 17:12 Heparin Sodium (Porcine) (Heparin) 5,000 units SUBQ Q12H [facility] Stop: 12/14/18 20:59 Last Admin: 10/16/18 20:14 Dose: 5,000 units Levofloxacin (Levaquin Pb) 250 mg in 50 mls @ 50 mls/hr IV Q24HR [facility] Stop: 12/14/18 20:59 Last Admin: 10/16/18 20:14 Dose: 50 mls/hr Sodium Chloride (Nacl 0.45%) 1,000 mls @ 60 mls/hr IV .[id number] [facility] Stop: 12/14/18 12:29 Last Admin: 10/16/18 10:56 Dose: 60 mls/hr Vancomycin HCl 1 gm/ Sodium (Chloride) 250 mls @ 165 mls/hr IV Q24H [facility] Stop: 12/15/18 13:59 Last Admin: 10/16/18 13:11 Dose: 165 mls/hr Insulin Human Lispro (Humalog Insulin Sliding Scale) 0 units SUBQ ACHS [facility]; Protocol Stop: 12/13/18 20:59 Last Admin: 10/17/18 06:48 Dose: Not Given Loratadine (Claritin) 10 mg PO DAILY [facility] Stop: 12/14/18 08:59 Last Admin: 10/16/18 09:48 Dose: 10 mg Lorazepam (Ativan) 0.5 mg PO Q6HR PRN; Protocol PRN Reason: Anxiety Stop: 12/13/18 17:10 Losartan Potassium (Cozaar) 100 mg PO DAILY [facility] Stop: 12/14/18 08:59 Last Admin: 10/16/18 09:47 Dose: 100 mg Magnesium Hydroxide (Milk Of Magnesia) 30 ml PO Q4HR PRN PRN Reason: GI DISTRESS Stop: 12/13/18 17:10 Methylprednisolone Sodium Succinate (Solu-Medrol) 40 mg IVP Q8HR [facility] Stop: 12/15/18 20:59 Last Admin: 10/17/18 04:20 Dose: 40 mg Metoprolol Tartrate (Lopressor) 100 mg PO DAILY [facility] Stop: 12/14/18 08:59 Last Admin: 10/16/18 09:48 Dose: 100 mg Miscellaneous (Pharmacy To Dose) 1 ea PRN PRN PRN Reason: VANCOMYCIN IV PER RX Stop: 12/14/18 08:07 Miscellaneous (Vte Chemical Prophylaxis Screen/ Admission) 1 ea PRN PRN PRN Reason: PROTOCOL Stop: 12/14/18 13:37 Miscellaneous (Probiotic Screen) 1 ea PRN PRN PRN Reason: PROTOCOL Stop: 12/14/18 16:34 Montelukast Sodium (Singulair) 10 mg PO HS [facility] Stop: 12/14/18 20:59 Last Admin: 10/16/18 20:13 Dose: 10 mg Ondansetron HCl (Zofran) 4 mg IV Q8H PRN PRN Reason: Nausea / Vomiting Stop: 12/13/18 17:12 Oxybutynin Chloride (Ditropan) 5 mg PO TID PRN PRN Reason: Urinary Incontinence Stop: 12/13/18 17:10 Zolpidem Tartrate (Ambien) 5 mg PO HS PRN PRN Reason: Sleeplessness Stop: 12/13/18 17:10 Last Admin: 10/16/18 22:09 Dose: 5 mg General: alert, obese HEENT: NC/AT, PERRLA Neck: Supple, No JVD Lungs: rales, ronchi Cardiovascular: RRR, Normal S1, Normal S2, with murmur Abdomen: soft, globular, positive bowel sound Extremities: excoriation Internal Medicine Assmt/Plan - Assessment Assessment: 1. Possible pneumonia. 2. Chronic obstructive pulmonary disease exacerbation. 3. Hypertension. 4. Possible coronary artery disease. 5. Hypercholesterolemia. 6. Hyperglycemia, possible diabetes. 7. Gastroesophageal disorder. 8. Psych disorder. - Plan Plan: continue ivabx respiratory treatments am labs continue current plan of care
[2018-10-17] MEDS: Heparin Sod 5,000Units/ML 5,000 UNITS/ML VIAL SUBQ SCH ×2 (09:35→20:18)
[2018-10-17] MEDS: Atorvastatin Calcium 10 MG TAB PO SCH (09:39)
[2018-10-17] MEDS: Sodium Chloride 0.45% 1,000 ML IV SCH (09:47)
[2018-10-17] MEDS: Levofloxacin 250 mg/50 mL Premix Bag IV SCH (20:20)
[2018-10-18] MEDS: Albuterol/Ipratropium Neb 3 ML AERS HHN SCH ×3 (01:38→15:15)
[2018-10-18 05:48] LABS: ANION GAP 12.3 (7.0-16.0); BUN - UREA NITROGEN 35 mg/dL (7-25); CALCIUM SERUM 8.4 mg/dL (8.6-10.3); CARBON DIOXIDE 27.6 mEq/L (21.0-31.0); CHLORIDE 102 mEq/L (98-107); CREATININE - SERUM 1.3 mg/dL (0.6-1.2); GLUCOSE 199 mg/dL (70-105); POTASSIUM SERUM 3.9 mEq/L (3.5-5.1); SODIUM SERUM 138 mEq/L (136-145)
[2018-10-18 06:03] LABS: % BASOPHILS 0.1 % (0.0-2.0); % LYMPHOCYTES 9.7 % (20.0-50.0); % MONOCYTES 5.2 % (2.0-10.0); EOSINOPHILE ABSOLUTE 0.1 Th/cmm (0.1-0.4); HEMATOCRIT 31.7 % (41.0-60); HEMOGLOBIN 10.4 gm/dL (12-16); LYMPHOCYTE ABSOLUTE 0.7 Th/cmm (1.5-3.0); MEAN CELL VOLUME 81.5 fl (81-100); MEAN CORPUSCULAR HEMOGLOBIN 26.6 pg (27.0-31.0); MEAN CORPUSCULAR HGB CONC 32.6 pg (28.0-36.0); MEAN PLATELET VOLUME 7.7 fl; MONOCYTE ABSOLUTE 0.4 Th/cmm (0.3-1.0); NEUTROPHILE ABSOLUTE 6.5 Th/cmm (1.8-8.0); PLATELET COUNT 221 Th/cmm (150-400); RED BLOOD COUNT 3.89 Mil/cmm (3.80-5.20); RED CELL DISTRIBUTION WIDTH 14.8 % (11.5-20.0); WHITE BLOOD COUNT 7.7 Th/cmm (4.8-10.8)
[2018-10-18] MEDS: Sodium Chloride 0.45% 1,000 ML IV SCH (06:33)
[2018-10-18] MEDS: INSULIN LISPRO SLIDING SCALE 100 UNITS/ML UNIT SUBQ SCH ×2 (06:59→15:22)
[2018-10-18] MEDS: methylPREDNISolone SS 40 mg Vial IVP SCH (09:47)
[2018-10-18] MEDS: Heparin Sod 5,000Units/ML 5,000 UNITS/ML VIAL SUBQ SCH (09:47)
[2018-10-18] MEDS: Atorvastatin Calcium 10 MG TAB PO SCH (09:48)
--- NOTE | 2018-10-18 10:19 | Progress Notes ---
DATE: 10/17/2018 PULMONARY PROGRESS NOTE SUBJECTIVE: The patient appears to be doing okay, in no distress. OBJECTIVE: VITAL SIGNS: Temperature is 98.2, pulse 75, respirations 20, blood pressure ____/62, saturation 94-97%. CHEST: Good breath sounds. No wheezing. Few rhonchi. HEART: Regular rate and rhythm. ABDOMEN: Soft. EXTREMITIES: No edema. LABORATORY DATA: WBC is 9.5, hemoglobin 10.9, and platelets 239. Sodium 130, potassium 3.8, BUN is 30, and creatinine 1.2. IMPRESSION: 1. Respiratory failure. 2. Chronic obstructive pulmonary disease exacerbation. 3. Acute bronchitis. PLAN: 1. Continue nebulizer treatment. 2. Antibiotics. 3. Decrease steroids and continue supportive care. Thank you very much for this consultation. We will follow the patient along with you. JOB# [id number]
--- NOTE | 2018-10-18 19:02 | Discharge Summary ---
DATE OF DISCHARGE: 10/18/2018 CHIEF COMPLAINT: Congestion and shortness of breath. FINAL DIAGNOSES: Possible pneumonia, chronic obstructive pulmonary disease exacerbation, hypertension, coronary artery disease, hypercholesterolemia, diabetes, gastroesophageal reflux disease, psych disorder. HISTORY: This is a 78-year-old female with history of asthma, COPD, hypertension, hypercholesterolemia, diabetes, admitted from secondary to increasing shortness of breath even though she is on bronchodilator and antibiotic. The patient admitted for further management. PHYSICAL EXAMINATION: VITAL SIGNS: Blood pressure 130/69, respirations 19, pulse 66, temperature 97.6. GENERAL: Elderly female, morbidly obese. NECK: Supple. No mass. LUNGS: Equal breath sounds, few rhonchi. HEART: Regular rate and rhythm with systolic ejection murmur. ABDOMEN: Soft, globular. EXTREMITIES: Positive excoriations. NEUROLOGIC: Limited. HOSPITAL COURSE: The patient was admitted to telemetry. Continue oxygen and bronchodilator treatment. The patient was seen by Dr. Al for Pulmonary for psych. Her medication were adjusted. The patient's condition has improved. We will discharge the patient on p.o. antibiotic as well as IV steroids. CONDITION ON DISCHARGE: Fair. DISCHARGE INSTRUCTIONS: She will be discharged to a care home facility per family's request. [facility]# [id number]
== END 2018-10-18 16:47 | DRG 190 ==
LOC: ER 13:35 → MSI 16:30
PROVIDERS: ADMIT Internal Medicine; ATTEND Internal Medicine
DX: J44.0 Chronic obstructive pulmonary disease with (acute) lower respiratory infection (principal); J18.9 Pneumonia, unspecified organism; J96.10 Chronic respiratory failure, unspecified whether with hypoxia or hypercapnia; J44.1 Chronic obstructive pulmonary disease with (acute) exacerbation; J20.9 Acute bronchitis, unspecified; I10 Essential (primary) hypertension; I25.10 Atherosclerotic heart disease of native coronary artery without angina pectoris; E78.5 Hyperlipidemia, unspecified; E11.65 Type 2 diabetes mellitus with hyperglycemia; K21.9 Gastro-esophageal reflux disease without esophagitis; E78.00 Pure hypercholesterolemia, unspecified; F29 Unspecified psychosis not due to a substance or known physiological condition; R91.1 Solitary pulmonary nodule; F32.9 Major depressive disorder, single episode, unspecified; Z88.5 Allergy status to narcotic agent; Z88.0 Allergy status to penicillin; Z87.891 Personal history of nicotine dependence
CPT/HCPCS: 36415-UA; 71045-TC; 71250-TC; 80048-TC; 80053-TC; 80061-TC; 80202-TC; 82948-90; 83036-90; 84443-TC; 85025-TC; 87070; 90779; 93005; 94640; 94760; 97530; J1644; J1956; J2920; J2930; J3370; J7040; J7512; J7613; X3904; Z7610